=== PATIENT | male | born 1950 | race Caucasian/White ===

== ENCOUNTER 2016-05-25 05:57 | Inpatient (IN) | payer OTHER ==
--- NOTE | 2016-05-22 14:32 | PREOPHP ---
DATE OF ADMISSION: 05/25/2016 PREOPERATIVE INTERNAL MEDICINE CONSULTATION/MEDICAL HISTORY AND PHYSICAL The patient to have surgery with Dr. Tyler Roberto 05/25/2016. REASON FOR CONSULTATION: Consultation requested by Dr. Tyler Roberto for medical evaluation and pierre arance of a 65-year-old gentleman about to undergo lumbar spine surgery. Thank you, Dr. Roberto, for allowing us to participate in the care of this patient. HISTORY OF PRESENT ILLNESS: Surya Mora, a 65-year-old gentleman, issues with his back is current ly being admitted for correction of the above. The patient will be having decompressive laminectomy L3-L5 and microdiskectomy L5-S1 on the right. In terms of his past surgical history he has had an umbilical hernia repair as well as an appendecto my. Medically speaking, had a stent put in for coronary artery disease and he has been stable in te zeke of his cardiac disease for quite a while. He has also fractured 5 ribs in a severe accident. O ther than that, he has been basically healthy. MEDICATIONS: He is currently taking the following medications: 1. Largo as needed for pain. 2. Meloxicam 7.5 mg two a day, which he stopped about 10 days ago. 3. Flomax 0.4 mg a day. 4. Metoprolol tartrate 25 mg b.i.d. 5. Fenofibrate 134 mg daily. 6. Omeprazole 20 mg a day. 7. Amlodipine 5 mg a day. He has stopped his Fish oil. 8. He also takes hydrochlorothiazide/lisinopril combination 20/25 for blood pressure. 9. He takes vitamin D 1000 international units. 10. He is on metformin 500 mg b.i.d. for prediabetes. 11. Lipitor 20 mg a day. 12. 81 mg aspirin, which he has stopped. 13. Potassium gluconate 595 mg per day. ALLERGIES: HE IS NOT ALLERGIC TO ANY MEDICATIONS. SOCIAL HISTORY: The patient is , has 4 children and 5 grandchildren. He does not smoke. A lcohol socially. Does drink a cup of coffee a day. He is currently retired and usually has no diff iculty sleeping at night. FAMILY HISTORY: Father at age 69 of hepatitis C. The patient contracted that with a blood garay sfusion. Mother age 97 of old age, did have breast cancer; however, which did not kill her. One bro ther and 2 sisters are living, one sister of heart issues, cancer and hypertension in the famil y. REVIEW OF SYSTEMS HEENT: Periodic tension headaches. CARDIORESPIRATORY: Denies any chest pain or shortness of breath. GASTROINTESTINAL: No melena or hematemesis. GENITOURINARY: Has signs and symptoms of prostatism. MUSCULOSKELETAL: Positive for back pain. NEUROPSYCHIATRIC: Unremarkable. GENERAL HEALTH: As above. PHYSICAL EXAMINATION: VITAL SIGNS: The patient's blood pressure was 138/70, pulse was 88 and regular, respirations were 1 8, temperature 97.9, height 5 feet 7 inches, weight 200 pounds even. GENERAL: The patient was noted to be a well-developed, well-nourished male, alert and cooperative, in no apparent acute distress, oriented to time, place, and person. HEAD, EARS, EYES, NOSE AND THROAT: Head was atraumatic. Eyes: Pupils were equal, reactive to ligh t and accommodation. Fundi were benign. Tympanic membranes were unremarkable. Nose was negative. Mouth was unremarkable. Fair oral hygiene was present. NECK: Supple without any rigidity. Trachea was midline. Thyroid was unremarkable. Neck veins wer e flat. Carotid pulses were equal. No bruits were heard. BACK: Unremarkable. CHEST: Symmetrical. BREASTS AND AXILLARY: Did not reveal any masses. LUNGS: Clear to percussion and auscultation. HEART: PMI is the fifth intercostal space at the midclavicular line. Regular sinus rhythm was note d. No significant murmurs, rubs, or gallops being elicited. ABDOMEN: Soft, good bowel sounds were noted. No significant organomegaly, masses, or tenderness. Scars from prior surgery were noted. GENITALIA: Normal male external genitalia. RECTAL AND PROSTATIC: Done recently per PCP, unremarkable other than an enlarged prostate. EXTREMITIES: Did not reveal any clubbing, edema or cyanosis. Peripheral pulses were physiologic. SKIN: Moist and warm without any eruptions. No gross lymphadenopathy was noted. NEUROLOGIC: Grossly intact. IMPRESSION 1. Lumbar disk disease and spinal stenosis. 2. Coronary artery disease, status post stent placement. 3. Metabolic syndrome prediabetes/diabetes mellitus. 4. Hyperlipidemia. 5. Hypertension. 6. Prostatic enlargement. DISCUSSION: Review of laboratory and other data revealed the following: The patient's chemistry pa irene revealed a random glucose of 160, BUN of 24, normal electrolytes, creatinine, liver function patti t revealed low alkaline phosphatase, minimally elevated AST and ALT was 164, but in acceptable range s. The patient's TSH was normal. His hemoglobin A1c, however, was 6.9, which is in the diabetic ra nge, but good control. CBC, sed rate, UA, PT and PTT were normal. The patient's chest x-ray was normal as well. As was his EKG did not reveal any acute changes; howev er, there were some changes of an old inferior NH and a low QRS in the precordial leads. The rest o f the exams were basically unremarkable. DISCUSSION: Dr. Roberto, I see no contraindication in this patient undergoing current proposed surg gopi under the desired form of anesthesia and will follow him along with you during his stay at [facility]. Thank you again, Dr. Roberto, for allowing us to participate in the care of this patient. Dictated By: SKY SANCHEZ/NITZA Conf#: [id number] DID#: [id number]
[2016-05-22 17:52] VITALS: BMI 31.4
[~2016-05-25] VITALS: Ht 170.2 cm; Wt 82.2 kg
[2016-05-25] VITALS (26 sets, daily range): BP systolic 124–163; BP diastolic 64–109; PULSE 70–93; RESP 12–22; Ht 170.2 cm; Wt 82.2 kg
[2016-05-25] MEDS ORDERED: HYDR-3027 PO (08:04)
[2016-05-25] MEDS ORDERED: MELO7.5O PO (08:05)
[2016-05-25] MEDS ORDERED: [UNRECOGNIZED DRUG - OTHER] PO (08:10)
[2016-05-25] MEDS ORDERED: METO25TA4 PO (08:10)
[2016-05-25] MEDS ORDERED: FINOFIBRATE PO (08:10)
[2016-05-25] MEDS ORDERED: OMEG500C3 PO (08:17)
[2016-05-25] MEDS ORDERED: AMLO2.5T78 PO (08:17)
[2016-05-25] MEDS ORDERED: OMEP20CA16 PO (08:17)
[2016-05-25] MEDS ORDERED: LISI1TAB8 PO (08:17)
[2016-05-25] MEDS ORDERED: HYD25 PO (08:17)
[2016-05-25] MEDS ORDERED: ATOR20TA65 PO (08:18)
[2016-05-25] MEDS ORDERED: METF-382 PO (08:18)
[2016-05-25] MEDS ORDERED: POTA2TAB14 PO (08:18)
[2016-05-25] MEDS ORDERED: ASPI325T4 PO (08:18)
[2016-05-25] MEDS ORDERED: CHOL10009 PO (08:18)
[2016-05-25] MEDS ORDERED: GLYCOPYRROLATE 1 MG INJ ONE (08:33)
[2016-05-25] MEDS ORDERED: PROPOFOL 20 ML ONE (08:33)
[2016-05-25] MEDS ORDERED: ROCURONIUM 50 MG INJ ONE (08:33)
[2016-05-25] MEDS ORDERED: NEOSTIGMINE 3 MG/3 ML SYRINGE ONE (08:33)
[2016-05-25] MEDS ORDERED: MIDAZOLAM 1 MG/ML 2 ML INJ ONE (08:33)
[2016-05-25] MEDS ORDERED: LIDOCAINE 100 MG SYRINGE ONE (08:33)
[2016-05-25] MEDS ORDERED: ONDANSETRON 4 MG INJ ONE (08:34)
[2016-05-25] MEDS ORDERED: DEXAMETHASONE 4 MG/ML 1 ML INJ ONE (08:34)
[2016-05-25] MEDS ORDERED: TAMS0.4C2 PO (08:50)
[2016-05-25] MEDS ORDERED: GELATIN SIZE 100 SPONGE ONE (09:50)
[2016-05-25] MEDS ORDERED: POLYMYXIN/BACITRACIN 1L IRRIG ONE (09:50)
[2016-05-25] MEDS ORDERED: BUPIVACAINE 0.25% (MPF) 10 ML 10 ML VIAL ONE (09:50)
[2016-05-25] MEDS ORDERED: THROMBIN 5000 UNIT VIAL ONE (09:50)
--- NOTE | 2016-05-25 09:51 | HPN ---
Date/Time of Note Date/Time of Note DATE: 05/25/16 TIME: 09:51 Interval H&P Admission Note Pt. seen H&P reviewed: No system changes CHRISTOS CABALLERO MD May 25, 2016 09:51
[2016-05-25] MEDS ORDERED: CEFAZOLIN 2 GM/50 ML (PMX) 50 ML IVPB ONE (10:02)
[2016-05-25] MEDS ORDERED: LABETALOL HCL 20MG INJ ONE (10:26)
[2016-05-25] MEDS ORDERED: KETAMINE 500 MG INJ ONE (11:42)
[2016-05-25] MEDS ORDERED: MIDAZOLAM 1 MG/ML 2 ML INJ IV PRN (12:00)
[2016-05-25] MEDS ORDERED: LABETALOL HCL 20MG INJ IV PRN (12:00)
[2016-05-25] MEDS ORDERED: hydrALAzine 20 MG INJ IV PRN (12:00)
[2016-05-25] MEDS ORDERED: DIPHENHYDRAMINE 50 MG INJ IV PRN (12:00)
[2016-05-25] MEDS ORDERED: TRIMETHOBENZAMIDE 100 MG/ML VIAL IM PRN ×2 (12:00→17:00)
[2016-05-25] MEDS ORDERED: MEPERIDINE 25 MG INJ IV PRN (12:00)
[2016-05-25] MEDS ORDERED: EPHEDrine SULFATE 50 MG/5 ML SYG IV PRN (12:00)
[2016-05-25] MEDS ORDERED: HYDROmorphONE (0.2 MG/ML) 10ML SYG IV PRN ×2 (12:00)
[2016-05-25] MEDS ORDERED: FENTAnyl 50 MCG/ML VIAL IV PRN ×2 (12:00)
[2016-05-25] MEDS ORDERED: ONDANSETRON 4 MG INJ IV PRN ×2 (12:00→17:00)
[2016-05-25] MEDS ORDERED: DEXTROSE 5%-0.45% NACL 1,000 ML IV SCH (12:16)
[2016-05-25] MEDS ORDERED: ACETAMINOPHEN 325 MG TAB PO PRN (12:30)
[2016-05-25] MEDS ORDERED: NALOXONE (0.4 MG/ML) INJ IV PRN (12:30)
[2016-05-25] MEDS ORDERED: NACL 0.9% 3 ML SYG IV SCH (12:30)
[2016-05-25] MEDS ORDERED: BETHANECHOL 25 MG TAB PO PRN (12:30)
[2016-05-25] MEDS ORDERED: AL HYDROX/MG HYDROX/SIMETH 30 ML CUP PO PRN (12:30)
[2016-05-25] MEDS ORDERED: PROCHLORPERAZINE 10 MG TAB PO PRN (12:30)
[2016-05-25] MEDS: FENTAnyl 50 MCG/ML VIAL IV PRN ×4 (12:51→13:22)
--- NOTE | 2016-05-25 12:51 | OPPN ---
Date/Time of Note Date/Time of Note DATE: 05/25/16 TIME: 12:45 Operative/Procedure Note Pre-Operative Diagnosis Lumbar spinal stenosis at L3, L4 and L5 Post-Operative Diagnosis Same Procedure Central decompressive laminectomy at L3,L4 and L5 Medial facetectomy and foraminotomy L3-4 L4-5 and L5-S1 bilaterally Cosmetic wound closure (10 cm) Lateral localizing lumbar radiographs (2) Intraoperative nerve monitoring (2-1/2 hours) Surgeon: CHRISTOS CABALLERO MD Shelter Advocate: IVAN PALUMBO Anesthesiologist: Johny Phan M.D. Findings Lumbar spinal stenosis at L3, L4, and L5 was confirmed. There was some mild disc bulging at L5-S1 on the right but no herniation was identified. Blood Usage/Administration None Implants/Grafts: Not applicable Estimated blood loss: 50 - 100 ml's Drains 2 medium Hemovac drains employed Specimens Spinous processes of L3,L4 and L5 Complications: None Anesthesia type: general CHRISTOS CABALLERO MD May 25, 2016 12:51
[2016-05-25] MEDS: HYDROmorphONE (0.2 MG/ML) 10ML SYG IV PRN ×4 (12:52→13:23)
[2016-05-25] MEDS ORDERED: GLUCAGON 1 MG INJ IM PRN (13:00)
[2016-05-25] MEDS ORDERED: GLUCOSE GEL 15 GRAM TUBE BUCCAL PRN (13:00)
[2016-05-25] MEDS ORDERED: GLUCOSE GEL 15 GRAM TUBE PO PRN ×2 (13:00)
[2016-05-25] MEDS ORDERED: DEXTROSE 50% 50 ML SYRINGE IV PRN ×2 (13:00)
--- NOTE | 2016-05-25 13:02 | RADRPT ---
PROCEDURE: XR Lumbar Spine one view. CLINICAL INDICATION: Low back pain. Intraoperative. TECHNIQUE: Prone portable cross-table lateral. COMPARISON: No prior studies are available for comparison. FINDINGS: For the purposes of this report, the last apparent true disc level is considered to be L5-S1. Based on this, the posterior needle markers are present at the lower L3 level and upper L5 level. IMPRESSION: 1. Intraoperative imaging as described above. RPTAT: QQ .Rey Freeman MD, MD Date Time Electronically viewed and signed by .Rey Freeman MD, MD on 05/25/2016 13:01 .R/
--- NOTE | 2016-05-25 13:02 | RADRPT ---
PROCEDURE: XR Lumbar Spine one view. CLINICAL INDICATION: Low back pain. Intraoperative. TECHNIQUE: Prone portable cross-table lateral. COMPARISON: Prior study done earlier the same day. FINDINGS: For the purposes of this report, the last apparent true disc level is considered to be L5-S1. Based on this, the posterior surgical instruments are present overlying the spinous processes of L3, L4, and L5. IMPRESSION: 1. Intraoperative imaging as described above. RPTAT: QQ .Rey Freeman MD, MD Date Time Electronically viewed and signed by .Rey Freeman MD, MD on 05/25/2016 13:02 .R/
[2016-05-25] MEDS: HYDROmorphONE 0.2 MG/ML PCA IV SCH ×2 (13:06→22:14)
--- NOTE | 2016-05-25 14:19 | OPR ---
DATE OF OPERATION: 05/25/2016 PREOPERATIVE DIAGNOSIS: Lumbar spinal stenosis at L3, L4, and L5. POSTOPERATIVE DIAGNOSIS: Lumbar spinal stenosis at L3, L4, and L5. OPERATIONS PERFORMED: 1. Central decompressive laminectomy at L3. 2. Central decompressive laminectomy at L4. 3. Central decompressive laminectomy at L5. 4. Medial facetectomy and foraminotomy at L3-4, L4-5, L5-S1 bilaterally. 5. Cosmetic wound closure (10 cm). 6. Lateral localized lumbar radiographs (2). 7. Intraoperative nerve monitoring (2.5 hours). SURGEON: Tyler Roberto MD PERSONAL PROTECTION SPECIALIST Karine Childress PA-C ANESTHESIA: General endotracheal. ANESTHESIOLOGIST: Dr. Phan ESTIMATED BLOOD LOSS: 75 mL, none replaced. DRAINS: Two medium Hemovac drains employed. COMPLICATIONS: None. PERTINENT HISTORY AND PHYSICAL: This is a 65-year-old male with persistent back and lower extremity complaints which have been unresponsive to conservative management following industrial injury of 0 07/05/2010. He has had extensive care since that time, has remained symptomatic. He has undergone a number of diagnostic studies including an MRI of the lumbar spine, which demonstrated lumbar spinal stenosis at L3, L4, and L5. Treatment options were discussed with the patient, he elected to proce ed with surgery. OPERATIVE FINDINGS AT SURGERY: A moderately severe degree of stenosis was noted at L4, moderate deg ree at L3, and a mild lateral recess stenosis at L5. The baseline intraoperative nerve monitoring r evealed a decrease in the L3 potentials of 20% bilaterally, the L4 potentials of 30% bilaterally, th e L5 potential on the left of 60%, the L5 potential on the right of 30%, the left S1 potential of 40 %, and the right S1 potential of 30%. These all returned to normal at the completion of surgery. OPERATIVE PROCEDURE: With the patient in the supine position after satisfactory induction of genera l endotracheal anesthesia by Dr. Phan, the patient was turned to the prone kneeling position on to the Ashtyn frame. All pressure points were carefully padded. The back was prepped and draped in usual sterile fashion. Athrombic pumps were applied to the legs below the knees. An indwelling Garland catheter was also placed preoperative to facilitate bladder drainage during and after the proc edure. Two spinal knees were placed next to what were felt to be the L3 and L5 spinous processes, l ateral roentgenogram was taken which confirmed anatomic localization. A 10 cm incision then carried out midline from L3 to the sacrum through skin and subcutaneous tissue to the deep fascia after ski n was infiltrated with 0.25% Marcaine without epinephrine for postoperative analgesia. Superficial retractors were placed and hemostasis secured with electrocautery. Throughout the procedure, copiou s amounts of antibacterial irrigating solution were used to periodically irrigate the wound. The fa scia was incised in midline with a hot knife and a bilateral subperiosteal dissection carried out fr om L3 to sacrum. Deep retractors were placed and deep hemostasis secured with electrocautery. A se cond intraoperative radiograph was taken with Nichole clamps and placed in what was felt to be the sp inous process of L3, L4, and L5 and this was confirmed with second x-ray. A central decompressive l aminectomy at L3, L4, and L5 was then carried out using a Diana right-angle bone rongeur, Leksell rongeur, Kerrison punches, and curettes. The ligamentum flavum was excised with sharp dissection. The operating microscope was then moved into place. A medial facetectomy and foraminotomy was accom plished at L3-4, L4-5, and L5-S1 bilaterally using small hand osteotome, mallet, Kerrison punches, a nd curettes. At this point, the attention was then turned to the L5-S1 disk on the right where the S1 root was mobilized medially with a blunt Dewey elevator and protected with Lucas'Yovanny nerve root re tractor using microdissection technique. This revealed diffuse disk bulge at the L5-S1 level with n o herniation identified. The epidural hemostasis was secured with bipolar electrocautery on a low s etting. The anesthesiologist was then asked to perform a Valsalva maneuver at 40 mmHg and no spinal fluid leakage was noted. The wound was then closed in layers over 2 medium Hemovac drains using #1 Vicryl Stratafix sutures on the deep paralumbar musculature and deep fascia of back, 2-0 Vicryl Str atafix sutures in the subQ tissue, and a 4-0 Vicryl subcuticular cosmetic closing suture on the skin . Dermabond and sterile compressive dressings were applied. The patient having tolerated the proce dure well, was then turned to supine position onto his bed and extubated by Dr. Phan. He was t ransported to recovery room in satisfactory condition. At the conclusion of procedure, sponge, inst rument, and needle counts were all correct. NEED FOR AUTOMOTIVE SERVICE TECHNICIAN: During this spinal surgical procedure, my assistant credit manager was used to retrac t and protect the spinal nerves and dural sac. My assistant credit manager also employed the suction catheters to e vacuate blood from the surgical field to improve visualization of the neural structures. The assista nt was medically necessary to facilitate the completion of the surgery in a safe and expeditious man ner. State of [place] regulations, as well as hospital bylaws, preclude the use of non-licensed [facility] personnel such as operating room technicians, to perform these functions. Throughout the procedure, neural monitoring was carried out by [employer] including EMG, SSEP, and MEP monitoring of the L3, L4, L5, and S1 nerve roots bilaterally along with spinal cord potentials. These were interpreted by a neurologist employed by [employer]. Dictated By: TYLER ROBERTO MD TM/NTS Conf#: [id number] DID#: [id number] CC: SKY STANLEY MD;*End*
--- NOTE | 2016-05-25 14:56 | CONS ---
DATE OF ADMISSION: 05/25/2016 DATE OF CONSULTATION: POSTOPERATIVE CONSULT FOLLOWUP HISTORY OF PRESENT ILLNESS: The patient was seen in the recovery room approximately 1:30 p.m. The patient seen in the recovery room and is alert, asking appropriate questions, is doing relativel y well. His last sugar was 180. PHYSICAL EXAMINATION: VITAL SIGNS: Blood pressure was 159/78, pulse was 80, respirations 17, temperature 99.7. HEENT: Unremarkable. LUNGS: Clear. Reveals a regular rhythm. IMPRESSION: 1. Status post lumbar spine stenosis as well as lumbar disk disease. 2. Coronary artery disease, status post stent placement. 3. Diabetes mellitus/metabolic syndrome. 4. Hyperlipidemia. 5. Hypertension. DISCUSSION: The patient is alert postoperatively. Have reordered most of his preoperative medicati ons. Also ordered twice a day Accu-Cheks and coverage before breakfast and dinner and resumed his m etformin. He may need some other forms of diabetes treatment, but this will be determined with time . I have taken the liberty to have his fluid changed to half normal saline from a regular diet to a diabetic diet. Condition postoperatively, however, is stable. Thank you again, Dr. Roberto, for allowing us to participate in the care of this patient. Dictated By: SKY SANCHEZ/INTZA Conf#: [id number] DID#: [id number]
[2016-05-25] MEDS: SOD CHLORIDE 0.45% 1,000 ML IV SCH ×2 (15:21→23:43)
[2016-05-25] MEDS: CEPASTAT LOZENGE MT PRN ×2 (15:27→21:03)
[2016-05-25] MEDS ORDERED: DIAZEPAM 5 MG/ML SYG IM PRN (17:00)
[2016-05-25] MEDS ORDERED: DIPHENHYDRAMINE 50 MG CAP PO PRN (17:00)
[2016-05-25] MEDS: metFORMIN 500 MG TAB PO SCH (18:05)
[2016-05-25] MEDS: CEFAZOLIN 1 GM/50 ML (PMX) 50 ML IVPB SCH ×2 (18:05→23:43)
[2016-05-25] MEDS: INSULIN ASPART [NOVOLOG] 3 ML PEN SC SCH (18:07)
[2016-05-25] MEDS ORDERED: ZOLPIDEM 5 MG TAB PO PRN (21:00)
[2016-05-25] MEDS: ATORVASTATIN 20 MG TAB PO SCH (21:03)
[2016-05-25] MEDS: RANITIDINE 150 MG TAB PO SCH (21:03)
[2016-05-25] MEDS: METOPROLOL 25 MG TAB PO SCH (21:03)
[2016-05-26 00:53] VITALS: PULSE 85
[2016-05-26 03:15] VITALS: PULSE 82
[2016-05-26 05:08] LABS: HEMATOCRIT 35.4 % (42.0-52.0); HEMOGLOBIN 12.2 g/dl (14.0-18.0)
[2016-05-26 05:30] LABS: POTASSIUM 3.8 mmol/L (3.5-5.1)
[2016-05-26 05:32] LABS: CREATININE 0.86 mg/dl (0.61-1.24)
[2016-05-26 05:33] LABS: CALCIUM 9.9 mg/dl (8.4-10.2)
[2016-05-26] MEDS: CEFAZOLIN 1 GM/50 ML (PMX) 50 ML IVPB SCH ×2 (06:12→13:12)
[2016-05-26] MEDS: PANTOPRAZOLE (EC) 40 MG TAB PO SCH (06:13)
[2016-05-26] MEDS: HYDROmorphONE 0.2 MG/ML PCA IV SCH (06:57)
--- NOTE | 2016-05-26 07:18 | PN ---
Date/Time of Note Date/Time of Note DATE: 05/26/16 TIME: 07:17 Assessment/Plan Lines/Catheters IV Catheter Type (from Nrs): Saline Lock Garland in Place (from Nrsg): Yes Subjective 24 Hr Interval Summary Patient is postop day #1 from lumbar decompression. Neurovascular structures are intact distally. Vital signs are stable, hemoglobin is 12.2. Drain output overnight was 45cc, this was removed today. Incision is healing well. Patient has been up ambulating with physical therapy. If he is cleared by PT and internal medicine he may be discharged later today. Exam/Review of Systems Vital Signs Vitals Vital Signs Date Time Temp Pulse Resp B/P Pulse Ox O2 Delivery O2 Flow Rate FiO2 05/26/16 05:04 2.0 05/26/16 03:15 82 98 30 05/25/16 19:14 98.0 18 148/80 05/25/16 15:30 Nasal Cannula Intake and Output 05/25/16 05/25/16 05/26/16 15:00 23:00 07:00 Intake Total 2100 ml 680 ml 1500 ml Output Total 195 ml 600 ml 3045 ml Balance 1905 ml 80 ml -1545 ml Results Result Diagram: 05/26/16 0435 05/26/16 0435 IVAN PALUMBO May 26, 2016 07:18
[2016-05-26] MEDS ORDERED: BETHANECHOL 25 MG TAB PO PRN (08:00)
[2016-05-26 08:40] VITALS: BP 152/72; RESP 20
[2016-05-26] MEDS: DOCUSATE SODIUM 100 MG CAP PO SCH ×2 (09:00→21:00)
[2016-05-26] MEDS: HYDROCODONE/APAP (5/325) TAB PO PRN ×5 (09:07→21:03)
--- NOTE | 2016-05-26 09:17 | CONS ---
DATE OF ADMISSION: 05/25/2016 DATE OF CONSULTATION: 05/26/2016 TYPE OF CONSULTATION: Postoperative internal medicine f/u TIME SEEN: Approximately 7:30 a.m. Patient is alert, had a relatively good night with minimum pain. He was ambulated yesterday without any great difficulty. PHYSICAL EXAMINATION: VITAL SIGNS: Revealed a blood pressure of 109/70, respirations 18, temperature 98, pulse 82, O2 sat on 2 liters 98% ENT: Unremarkable. LUNGS: Clear. HEART: Reveals regular rhythm. ABDOMEN: Unremarkable. IMPRESSION: 1. Status post lumbar spine surgery. 2. Hypertension. 3. Diabetes mellitus type 2. 4. Sleep apnea. LABORATORY DATA: Review of laboratory and other data reveals the following: The patient's hemoglobin and hematocrit 12 and 35.4. Chemistry panel including glucose was 127. Highest glucose last night was 194. DISCUSSION: Plan is per Dr. Roberto patient if cleared by PT will be going home today. Other than that, patient is doing nicely and is looking forward to going home, should he be able to be discharged. If he does go home, he has been instructed on continuing all his home medications the way he did before surgery and to follow up at the appropriate times with his own physician in [place]. Thank you again, Dr. Roberto, for allowing us to participate in the care of this patient. Dictated By: SKY SANCHEZ/NITZA Conf#: [id number] DID#: [id number]
[2016-05-26] MEDS: FENOFIBRATE 145 MG TAB PO SCH (09:37)
[2016-05-26] MEDS: HYDROCHLOROTHIAZIDE 25 MG TAB PO SCH (09:38)
[2016-05-26] MEDS: LISINOPRIL 20 MG TAB PO SCH (09:38)
[2016-05-26] MEDS: CHOLECALCIFEROL 1,000 UNIT TAB PO SCH (09:38)
[2016-05-26] MEDS: RANITIDINE 150 MG TAB PO SCH ×2 (09:38→21:00)
[2016-05-26] MEDS: AMLODIPINE 2.5 MG TAB PO SCH (09:38)
[2016-05-26] MEDS: TAMSULOSIN (SR) 0.4 MG CAP PO SCH (09:39)
[2016-05-26] MEDS: FERROUS SULFATE (EC) 325 MG TAB PO SCH ×3 (09:39→20:59)
[2016-05-26] MEDS: metFORMIN 500 MG TAB PO SCH ×2 (09:43→18:22)
[2016-05-26] MEDS: DIAZEPAM 5 MG TAB PO PRN ×3 (09:51→23:29)
[2016-05-26] MEDS: INSULIN ASPART [NOVOLOG] 3 ML PEN SC SCH ×2 (09:55→17:25)
[2016-05-26] MEDS: SOD CHLORIDE 0.45% 1,000 ML IV SCH ×2 (10:00→19:47)
[2016-05-26] MEDS: ASCORBIC ACID 500 MG TAB PO SCH ×2 (10:11→20:59)
[2016-05-26] MEDS: METOPROLOL 25 MG TAB PO SCH ×2 (10:11→21:00)
[2016-05-26 20:00] VITALS: BP 140/75; RESP 18
[2016-05-26] MEDS: ATORVASTATIN 20 MG TAB PO SCH (21:00)
[2016-05-26 23:34] VITALS: PULSE 63
[2016-05-27 01:30] VITALS: PULSE 68
[2016-05-27] MEDS: HYDROCODONE/APAP (5/325) TAB PO PRN ×3 (02:48→13:13)
[2016-05-27] MEDS: PANTOPRAZOLE (EC) 40 MG TAB PO SCH (05:20)
[2016-05-27] MEDS: SOD CHLORIDE 0.45% 1,000 ML IV SCH (05:21)
--- NOTE | 2016-05-27 06:55 | PN ---
Date/Time of Note Date/Time of Note DATE: 05/27/16 TIME: 06:53 Assessment/Plan Lines/Catheters IV Catheter Type (from Nrs): Saline Lock Garland in Place (from Nrs): Yes Subjective 24 Hr Interval Summary The patient is postop day #2 following his multilevel decompressive laminectomy. He is resting comfortably in bed. I anticipate he will be cleared by physical therapy for discharge later today. Examination reveals neurovascular structures to be intact distally. He was given strict discharge precautions and instructions. He will follow-up in the office in 1-2 weeks. He was given back instructions sheets for his information. Exam/Review of Systems Vital Signs Vitals Vital Signs Date Time Temp Pulse Resp B/P Pulse Ox O2 Delivery O2 Flow Rate FiO2 05/27/16 01:30 68 98 30 05/26/16 20:00 98.2 18 140/75 05/26/16 05:04 2.0 05/25/16 15:30 Nasal Cannula Intake and Output 05/26/16 05/26/16 05/27/16 15:00 23:00 07:00 Intake Total 1450 ml 800 ml Output Total 1800 ml 1000 ml Balance -350 ml -200 ml Results Result Diagram: 05/26/16 0435 05/26/16 0435 CHRISTOS CABALLERO MD May 27, 2016 06:55
[2016-05-27] MEDS: INSULIN ASPART [NOVOLOG] 3 ML PEN SC SCH (07:20)
[2016-05-27 07:59] VITALS: BP 150/72; RESP 20
[2016-05-27] MEDS: TAMSULOSIN (SR) 0.4 MG CAP PO SCH (08:24)
[2016-05-27] MEDS: FERROUS SULFATE (EC) 325 MG TAB PO SCH ×2 (08:24→13:12)
[2016-05-27] MEDS: HYDROCHLOROTHIAZIDE 25 MG TAB PO SCH (08:25)
[2016-05-27] MEDS: METOPROLOL 25 MG TAB PO SCH (08:25)
[2016-05-27] MEDS: AMLODIPINE 2.5 MG TAB PO SCH (08:26)
[2016-05-27] MEDS: RANITIDINE 150 MG TAB PO SCH (08:27)
[2016-05-27] MEDS: FENOFIBRATE 145 MG TAB PO SCH (08:27)
[2016-05-27] MEDS: ASCORBIC ACID 500 MG TAB PO SCH (08:27)
[2016-05-27] MEDS: CHOLECALCIFEROL 1,000 UNIT TAB PO SCH (08:27)
[2016-05-27] MEDS: LISINOPRIL 20 MG TAB PO SCH (08:28)
[2016-05-27] MEDS: DIAZEPAM 5 MG TAB PO PRN ×2 (08:30→15:06)
[2016-05-27] MEDS: metFORMIN 500 MG TAB PO SCH (08:31)
[2016-05-27] MEDS: DOCUSATE SODIUM 100 MG CAP PO SCH (08:31)
--- NOTE | 2016-05-27 09:16 | CONS ---
DATE OF ADMISSION: 05/25/2016 DATE OF CONSULTATION: 05/27/2016 HISTORY OF PRESENT ILLNESS: The patient had a relatively decent night; however, had an episode duri ng the day, he choked on a pea and had an uncontrollable coughing fit, which really gave him a lot o f back pain. Other than that, he has been doing relatively well and is looking forward to going claude e today. PHYSICAL EXAMINATION: VITAL SIGNS: Revealed the following: Blood pressure 150/72, pulse 68 and regular, respirations 20, temperature 98, O2 saturation 98% on room air. HEENT: Unremarkable. LUNGS: Clear. HEART: Reveals a regular rhythm. ABDOMEN: Unremarkable. IMPRESSION: 1. Status post lumbar spine surgery. 2. Coronary artery disease, status post stent placement. 3. Metabolic syndrome/diabetes mellitus type 2. 4. Hyperlipidemia. 5. Hypertension, status post lumbar spine surgery, obviously. LABORATORY DATA: Review of laboratory and other data not available today since he did not have any done. MEDICATIONS: Plan is to send patient home on his prior home medicines, which include: 1. Flomax 0.4 mg at bedtime. 2. Amlodipine 5 mg daily. 3. Atorvastatin 20 mg a day. 4. Lisinopril/hydrochlorothiazide 20/25 daily. 6. Metoprolol 25 mg b.i.d. 7. Aspirin. 8. A variety of other medicines including Metformin 500 mg b.i.d. and omeprazole 20 mg at bedtime. Patient is to follow up with his primary care doctor in terms of his medical issues. We will be fol lowing up with Dr. Roberto in terms of his orthopedic issues. Thank you again, Dr. Roberto, for allowing us to participate in care of this patient. Dictated By: SKY SANCHEZ/NITZA Conf#: [id number] DID#: [id number]
== END 2016-05-27 15:50 | disposition home or self-care (01) | DRG 520 ==
LOC: REC 05:57 → MS1 14:00
PROVIDERS: ADMIT Orthopaedic Surgery; ATTEND Orthopaedic Surgery
PROC: 0SB40ZZ Excision of Lumbosacral Disc, Open Approach (ICD-10-PCS; 2016-05-25)
PROC: 01NB0ZZ Release Lumbar Nerve, Open Approach (ICD-10-PCS; principal; 2016-05-25 10:00)
DX: M48.06 Spinal stenosis, lumbar region (principal); E88.81 Metabolic syndrome and other insulin resistance; M51.27 Other intervertebral disc displacement, lumbosacral region; I25.10 Atherosclerotic heart disease of native coronary artery without angina pectoris; E11.9 Type 2 diabetes mellitus without complications; I10 Essential (primary) hypertension; N40.0 Benign prostatic hyperplasia without lower urinary tract symptoms; E78.5 Hyperlipidemia, unspecified; G47.33 Obstructive sleep apnea (adult) (pediatric); Z79.82 Long term (current) use of aspirin; Z79.84 Long term (current) use of oral hypoglycemic drugs; Z95.5 Presence of coronary angioplasty implant and graft
CPT/HCPCS: 72020; 80048; 82962; 85014; 85018; 86850; 86900; 86901; 86920; 87086; 94660; 97116; 97163; 97530; J0690; J1100; J1170; J1815; J2001; J2175; J2250; J2405; J2710; J3010